=== PATIENT | female | born 1960 | race Caucasian/White ===

== ENCOUNTER → 2017-02-15 | Outpatient (CLI) | payer BC ==
--- NOTE | 2017-02-15 10:50 | PCVCIMAG ---
EXAM: AORTOILIAC DUPLEX INDICATION: Palpable abdominal fullness. FINDINGS: AORTA: Suprarenal aorta measures maximum diameter of 2.8 cm. There is not a fusiform infrarenal aortic aneurysm. The infrarenal aorta measures maximum diameter of 2.3 cm. No aortic stenosis. RIGHT COMMON ILIAC ARTERY: Maximum diameter is 1.2 cm. No significant stenosis. RIGHT EXTERNAL ILIAC ARTERY: No significant stenosis. LEFT COMMON ILIAC ARTERY: Maximum diameter is 1.1 cm. No significant stenosis. LEFT EXTERNAL ILIAC ARTERY: No significant stenosis. IMPRESSION: No abdominal aortic aneurysm. No aortoiliac stenosis seen. LOC:[id number]
--- NOTE | 2017-02-15 13:09 | PCVCIMAG ---
APPROVED REPORT Exam: Stress Echocardiogram Indication: Hyperlipidemia, Hypertension, Dyspnea Patient Location: Echo lab Stress Nurse: Naty Le RN Status: routine Ht: 5 ft 8 in HR: 105 bpm BP: 110/80 mmHg Rhythm: NSR Procedure The patient underwent an Exercise Stress Test using the Victor Manuel Protocol. Blood pressure, heart rate, and EKG were monitored. An Echocardiogram was performed by template reproduction technician in four stages in quad fashion. At peak stress, four selected images were obtained and placed side by side with resting images for comparison. Stress Test Details Stress Test: Exercise stress testing was performed using a Victor Manuel protocol. HR Resting HR: 105 bpmMax Heart Rate (APMHR): 162 bpm Max HR Achieved: 166 bpmTarget HR (85% APMHR): 137 bpm % of APMHR: 102 HR response to stress: Normal HR response to stress BP Resting BP: 110/80 mmHg Max BP: 162/100 mmHg ECG Resting ECG: Sinus Rhythm Stress ECG: Sinus Rhythm Clinical Reason for Termination: Maximal effort Stress Symptoms: Dyspnea Exercise duration: 10 min 16 sec Highest Stage Achieved: Stage 4: 4.2 mph at 16% grade. Exercise capacity: 13.70 METs Overall Exercise Capacity for Age: Good Pre-Stress Echo The resting Echocardiogram showed normal left ventricular contractility with an estimated Ejection Fraction of about 60-65%. Normal wall motion in all segments on baseline images. Post-Stress Echo The stress Echocardiogram showed normal left ventricular contractility with an estimated Ejection Fraction of about 65-70%. Normal augmentation of wall motion in all segments on post stress images. Clinical No clinical or ECG evidence for ischemia. Conclusion Clinical Response: Non-ischemic Exercise Capacity: Superior Stress ECG Response: Non-ischemic Stress Echo Images: Non-ischemic The left ventricle is normal in size and wall thickness in both the rest and stress images. Other Information Study Quality: Good <Conclusion> The left ventricle is normal in size and wall thickness in both the rest and stress images.
== END | disposition home or self-care (01) ==
LOC: PCVCIMAG 09:45
PROVIDERS: ATTEND Internal Medicine Cardiovascular Disease
DX: I10 Essential (primary) hypertension (principal); E78.5 Hyperlipidemia, unspecified; R19.07 Generalized intra-abdominal and pelvic swelling, mass and lump
CPT/HCPCS: 80061; 93325; 93351; 93978